=== PATIENT | male | born 1955 | race Caucasian/White ===

== ENCOUNTER → 2021-07-04 | Outpatient (CLI) | payer MEDICARE, OTHER ==
[~2021-07-04] MED LIST: METHACHOLINE KIT (J7674) INH ONE
--- NOTE | 2021-07-04 16:00 | PFTRPT ---
Height: 71.00 Inches Weight: 230.00 Lbs BSA: 2.24 Diagnosis: R06.02 DATE: 07/04/2021 ORDERED BY: Harper Jaimes RN, ANP QUALITY: Study of excellent technical quality. PROCEDURE: Under protocol, methacholine was administered. Even after a maximal dose of 25 mg or 188.875 CDUs no provocation was ever achieved. IMPRESSION: Negative methacholine challenge study. MTDD
== END ==
LOC: M CARPUL 06-27 07:50
PROVIDERS: ATTEND Nurse Practitioner Adult Health
DX: R06.02 Shortness of breath (principal)
CPT/HCPCS: 94070; 95070; J7674